=== PATIENT | female | born 1985 | race Hispanic/Latino ===

== ENCOUNTER 2017-07-12 11:57 | Inpatient (IN) | payer BC, OTHER ==
[~2017-07-12] VITALS: Ht 170.2 cm; Wt 99.8 kg
[2017-07-12] MEDS ORDERED: ZANTAC150 MG PO (12:33)
[2017-07-12] MEDS ORDERED: VITAFOL-OB+DHA1 EACH PO (12:34)
[2017-07-14] MEDS ORDERED: NORCO 5-325 TA1 EACH PO (10:40)
== END 2017-07-14 12:15 | disposition home or self-care (01) | DRG 419 ==
LOC: ED 11:57 → MS 15:20
PROVIDERS: ADMIT Surgery
PROC: 0FT44ZZ Resection of Gallbladder, Percutaneous Endoscopic Approach (ICD-10-PCS; principal; 2017-07-13 11:30)
DX: K85.10 Biliary acute pancreatitis without necrosis or infection (principal); K21.9 Gastro-esophageal reflux disease without esophagitis
CPT/HCPCS: 00790; 36415; 80048; 80053; 81001; 82150; 83690; 84703; 85025; 90674; 94640; 94762; 96374; 96375; 99285; G0008; J0330; J0690; J1170; J1885; J2250; J2405; J2550; J2704; J3010; J7030; J7120